=== PATIENT | male | born 1985 | race Asian ===

== ENCOUNTER 2023-08-27 17:00 | Outpatient (CLI) | payer BC | END 2023-08-27 17:01 | disposition home or self-care (01) | LOC: SLEEPLAB 17:00 | PROVIDERS: ATTEND Family Medicine | DX: G47.33 Obstructive sleep apnea (adult) (pediatric) (principal); R53.83 Other fatigue; R06.83 Snoring; G47.00 Insomnia, unspecified | CPT/HCPCS: 95800 ==